=== PATIENT | male | born 1955 | race Hispanic/Latino ===

== ENCOUNTER 2016-12-14 12:46 | Emergency (ER) | payer BC, OTHER ==
[2016-12-14] MEDS ORDERED: CLEOCIN IM ONE (15:52)
[2016-12-14] MEDS ORDERED: TORADOL IM ONE (15:52)
[2016-12-14] MEDS ORDERED: BENADRYL IM ONE (15:52)
[2016-12-14] MEDS ORDERED: DELTASONE PO ONE (15:52)
--- NOTE | 2016-12-14 15:52 | Emergency Department Report ---
- General Chief complaint: Skin Rash Stated complaint: RASH ON BOTH ARMS Time Seen by Provider: 12/14/16 15:51 Source: patient, family Mode of arrival: Ambulatory Limitations: No Limitations - History of Present Illness Initial comments: Patient here report rash to bilateral arms worst on his left arm. He said it started 2 weeks ago on his left arm and it's a chin and redness from scratching in now looks infected. Pain is in left arm. Reports scant drainage what little bubbles. Denies any numbness or tingling. Pain is dull. Discomfort is more itching. He said he has not taken any [id number] medication. He said his dog [place] to the [place] a lot and that's the only thing that he can think off in his environment otherwise he has not used any new baths or laundry soap. No exposure to new medication. Patient with history of colon cancer and had colon surgery. Denies any respiratory symptoms. Denies any chest pain or shortness of breath. Pain worse with palpation better with rest. MD complaint: rash, discoloration Onset/Timin -: week(s) Tetanus Up to Date: yes Location: [facility] Severity: mild Severity scale (0 -10): 4 Quality: dull Consistency: intermittent Improves with: rest Worsens with: palpation Context: other (Possible exposure to poison plants) Associated symptoms: athralgias Treatments Prior to Arrival: none - Related Data Previous Rx's Medication Instructions Recorded Last Taken Type Cetirizine HCl [ZyrTEC] 10 mg PO QAM #7 capsule 12/14/16 Unknown Rx Clindamycin [Clindamycin CAP] 300 mg PO Q8H #30 cap 12/14/16 Unknown Rx methylPREDNISolone [Medrol] 4 mg PO QAM #1 tab.ds.pk 12/14/16 Unknown Rx Allergies Allergy/AdvReac Type Severity Reaction Status Date / Time No Known Allergies Allergy Unverified 01/27/15 09:26 Abscess Boil HPI - HPI Chief Complaint: Skin Rash Stated Complaint: RASH ON BOTH ARMS Time Seen by Provider: 12/14/16 15:51 Home Medications: Previous Rx's Medication Instructions Recorded Last Taken Type Cetirizine HCl [ZyrTEC] 10 mg PO QAM #7 capsule 12/14/16 Unknown Rx Clindamycin [Clindamycin CAP] 300 mg PO Q8H #30 cap 12/14/16 Unknown Rx methylPREDNISolone [Medrol] 4 mg PO QAM #1 tab.ds.pk 12/14/16 Unknown Rx Allergies/Adverse Reactions: Allergies Allergy/AdvReac Type Severity Reaction Status Date / Time No Known Allergies Allergy Unverified 01/27/15 09:26 ED Review of Systems ROS: Stated complaint: RASH ON BOTH ARMS Other details as noted in HPI Comment: All other systems reviewed and negative Constitutional: no symptoms reported ENT: denies: throat pain, congestion Respiratory: no symptoms reported Cardiovascular: denies: chest pain, palpitations, edema, syncope Gastrointestinal: denies: abdominal pain, nausea, diarrhea, constipation, hematemesis Musculoskeletal: arthralgia. denies: back pain, joint swelling, myalgia Skin: rash, change in color, pruritus Neurological: denies: headache, numbness, paresthesias, abnormal gait, vertigo ED Past Medical Hx - Past Medical History Previous Medical History?: Yes Hx of Cancer: Yes (colon) - Surgical History Past Surgical History?: Yes Additional Surgical History: colon surgery - Family History Family history: no significant - Social History Smoking Status: Never Smoker Substance Use Type: None Other Social History: - Medications Home Medications: Home Medications Medication Instructions Recorded Confirmed Last Taken Type Cetirizine HCl [ZyrTEC] 10 mg PO QAM #7 capsule 12/14/16 Unknown Rx Clindamycin [Clindamycin CAP] 300 mg PO Q8H #30 cap 12/14/16 Unknown Rx methylPREDNISolone [Medrol] 4 mg PO QAM #1 tab.ds.pk 12/14/16 Unknown Rx ED Physical Exam - General Limitations: No Limitations General appearance: alert, in no apparent distress - Head Head exam: Present: atraumatic, normocephalic, normal inspection - Eye Eye exam: Present: normal appearance, PERRL, EOMI. Absent: scleral icterus, conjunctival injection, periorbital swelling, periorbital tenderness Pupils: Present: normal accommodation - ENT ENT exam: Present: normal exam, normal orophraynx, mucous membranes moist, TM's normal bilaterally, normal external ear exam - Neck Neck exam: Present: normal inspection, full ROM. Absent: tenderness, lymphadenopathy - Respiratory Respiratory exam: Present: normal lung sounds bilaterally. Absent: respiratory distress, chest wall tenderness - Cardiovascular Cardiovascular Exam: Present: regular rate, normal rhythm, normal heart sounds - GI/Abdominal GI/Abdominal exam: Present: soft, normal bowel sounds. Absent: distended, tenderness, guarding, rebound, rigid - Extremities Exam Extremities exam: Present: full ROM, tenderness (Left FA/arm), normal capillary refill. Absent: pedal edema, joint swelling, calf tenderness - Expanded Upper Extremity Exam Left General: Present: other (rash, crusting). Absent: normal inspection, abrasion, nail injury (#), foreign body, amputation, avulsion Shoulder Exam: Present: normal inspection, full ROM. Absent: tenderness, swelling, abrasion, laceration, ecchymosis, deformity, crepidus, dislocation, erythema, tenderness over AC joint Upper Arm exam: Present: full ROM, erythema, other (rash). Absent: normal inspection, tenderness, swelling, abrasion, laceration, ecchymosis, deformity Elbow exam: Present: full ROM. Absent: tenderness, swelling, abrasion, laceration, ecchymosis, deformity, crepidus, dislocation, erythema, effusion, pain w/ pronation/supination, tenderness over radial head Forearm Wrist exam: Present: full ROM, tenderness, swelling, erythema, other ( rash, vesicles with crusting). Absent: normal inspection, abrasion, laceration , ecchymosis, deformity, crepidus, dislocation, tenderness over anatomical snuff box, pain with axial thumb loading Hand Wrist exam: Present: normal inspection, full ROM. Absent: tenderness, swelling, abrasion, laceration, ecchymosis, deformity, crepidus, dislocation, erythema, amputation, nail avulsion, subungual hematoma Neuro motor exam: Present: wrist extension intact, thumb opposition intact, thumb IP flexion intact, thumb adduction intact, fingers 2-5 abduction intact Neurosensory exam: Present: 2-point discrimination, radial nerve intact, ulnar nerve intact, median nerve intact Vascular: Present: normal capillary refill, radial pulse, brachial pulse, ulnar pulse. Absent: vascular compromise, Pallo, pulse deficit radial art, pulse deficit ulnar art, pulse deficit brachial art - Back Exam Back exam: Present: normal inspection, full ROM. Absent: tenderness, CVA tenderness (R), CVA tenderness (L), muscle spasm, paraspinal tenderness, vertebral tenderness, rash noted - Neurological Exam Neurological exam: Present: alert, oriented X3, normal gait, reflexes normal. Absent: motor sensory deficit - Psychiatric Psychiatric exam: Present: normal affect, normal mood - Skin Skin exam: Present: warm, dry, rash, erythema, vesicles. Absent: normal color - Expanded Skin Exam Expanded Type of lesion: Present: rash, other Distribution of rash: RUE (RFA erthemay without break in skin. Sry scaly areas) , LUE (patches, vesicular, erythema, ttp to LFA and Larm with erythema and TTP) Description of rash: Present: tenderness, erythematous, swelling, vesicular, urticarial, crusting, discharge. Absent: bullous, petechial, purpuic ED Course Vital Signs 12/14/16 12/14/16 13:26 16:10 Temperature 98.5 F Pulse Rate 67 Respiratory 16 16 Rate Blood Pressure 114/68 O2 Sat by Pulse 100 Oximetry - Reevaluation(s) Reevaluation #1: 12/14/16 16:53 Patient given toradol 60 mg im Benadryl 50 mg and Deltasone 50 mg po which will help Contact dermatitis and pain. She was given Clindamycin 600 mg IM for cellilitis. No adverse reaction noted 12/14/16 16:59 ED Medical Decision Making - Medical Decision Making ED course: Patient status post exposure to unknown agent which she thinks he was exposed to poisonous plant from [place]. Reports rash started out to his left forearm that was draining clear fluid and crest then and now redness spreading up to his left arm with pain. He is reporting he's been itching area and now reported in rash is spread into his right forearm. Clinical findings for contact dermatitis bilateral upper extremity which is more than likely allergic in nature with superimposed bacterial infection to left forearm. Patient given toradol 60 mg im Benadryl 50 mg and Deltasone 50 mg po which will help Contact dermatitis and pain. She was given Clindamycin 600 mg IM for cellilitis. No adverse reaction noted. Diagnosis and treatment plan eplained to the patient and he voiced understanding. Patient to discharge home on medrol dose pack, Clindamycin, zyrtec and instructed to keep affected area clean and dry and follow up wit cyber analyst in 2 days or return to ED if unable to get and appointment. TD vaccine UPD. Discharge home with family. Critical care attestation.: If time is entered above; I have spent that time in minutes in the direct care of this critically ill patient, excluding procedure time. ED Disposition Clinical Impression: Cellulitis of left upper extremity, Musculoskeletal pain of left upper extremity, Pruritic rash Contact dermatitis Qualifiers: Contact dermatitis type: unspecified Contact dermatitis trigger: unspecified trigger Qualified Code(s): L25.9 - Unspecified contact dermatitis, unspecified cause Disposition: TO HOME OR SELFCARE Is pt being admited?: No Does the pt Need Aspirin: No Condition: Stable Instructions: Contact Dermatitis (ED), Acute Wound Care (ED), Cellulitis (ED), Itchy Skin (ED), Musculoskeletal Pain (ED) Additional Instructions: Please follow up with cyber analyst .primary care as recommended and if he cannot get an appointment please return to the emergency room in 2 days for cellulitis left forearm Increase fluid intake Take medication as prescribed . Referred to discharge instruction in [facility] therapy. See discharge instructions and acute wound care Please keep affected area clean and dry Prescriptions: Cetirizine HCl [ZyrTEC] 10 mg PO QAM #7 capsule Clindamycin [Clindamycin CAP] 300 mg PO Q8H #30 cap methylPREDNISolone [Medrol] 4 mg PO QAM #1 tab.ds.pk Referrals: LAUREN STOREY MD [Staff Physician] - 12/16/16 PRIMARY CAREMD [Primary Care Provider] - 12/16/16 Forms: Work/School Release Form(ED)
[2016-12-15 00:08] VITALS: BP 120/69
== END 2016-12-14 17:15 | disposition home or self-care (01) ==
LOC: ED 12:46
DX: L03.114 Cellulitis of left upper limb (principal); M79.602 Pain in left arm; L25.9 Unspecified contact dermatitis, unspecified cause; L29.9 Pruritus, unspecified
CPT/HCPCS: 96372; 99282; J1200; J1885; J7512